=== PATIENT | male | born 1950 | race Two or more races ===

== ENCOUNTER 2020-01-22 16:12 | Inpatient (IN) | payer OTHER ==
[~2020-01-22] VITALS: Ht 165.1 cm; Wt 76.6 kg
--- NOTE | 2020-01-22 16:58 | NUR ---
PT REPORTS LEFT ELBOW/ARM SWELLING WITH SOME BRUSING NOTED. VS STABLE. FAMILY AT BEDSIDE. PT SEEN BY DR GREENFIELD WILL CONTINUE TO MONITOR.
[2020-01-22 17:00] LABS: BASOPHILS # (AUTO) 0.03 x10^3/uL (0-0.1); BASOPHILS % (AUTO) 0 % (0-1); EOSINOPHILS # (AUTO) 0.21 x10^3/uL (0-0.4); EOSINOPHILS % (AUTO) 3 % (1-7); LYMPHOCYTES # (AUTO) 1.19 x10^3/uL (1-3.4); LYMPHOCYTES % (AUTO) 17 % (22-44); MD NO; MEAN CORPUSCULAR HEMOGLOBIN 27.5 pg (27.5-34.5); MEAN CORPUSCULAR HGB CONC 32.6 g/dL (33.2-36.2); MEAN CORPUSCULAR VOLUME 84.3 fL (81-97); MEAN PLATELET VOLUME 7.4 fL (7.4-10.4); MONOCYTES % (AUTO) 11 % (2-9); NEUTROPHILS # (AUTO) 4.91 x10^3/uL (1.8-6.8); NEUTROPHILS % (AUTO) 69 % (42-75); PLATELET COUNT 297 x10^3/uL (130-400); RED BLOOD COUNT 5.18 x10^6/uL (4.38-5.82); RED CELL DISTRIBUTION WIDTH 14.7 % (9.4-14.8)
[2020-01-22] MEDS ORDERED: CEFTRIAXONE PMX 1GM/50ML 50 ML IVPB ONE (17:00)
[2020-01-22] MEDS ORDERED: SODIUM CHLORIDE FLUSH 10ML SYR IVF ONE (17:00)
[2020-01-22] MEDS ORDERED: CEFTRIAXONE PMX 1GM/50ML 50 ML ONE (17:03)
[2020-01-22 17:10] LABS: ALBUMIN 3.4 g/dL (3.4-5.0); ANION GAP 4 mmol/L (5-15); CHLORIDE 111 mmol/L (98-107); CREATININE 0.83 mg/dL (0.7-1.3)
--- NOTE | 2020-01-22 17:11 | NUR ---
both blood cultures drawn before abx given
[2020-01-22] MEDS ORDERED: METOPROLOL PO (17:19)
[2020-01-22] MEDS ORDERED: WARF-36 PO (17:19)
[2020-01-22 17:32] LABS: INTERNATIONAL NORMALIZED RATIO 2.38 (0.93-1.1); PROTHROMBIN TIME 25.5 Seconds (9.6-11.5)
[2020-01-22] MEDS ORDERED: MORPHINE SULFATE 4 MG/ML, 1ML ONE (18:18)
[2020-01-22] MEDS ORDERED: ONDANSETRON 2MG/ML, 2ML ONE (18:18)
[2020-01-22] MEDS: MORPHINE SULFATE 4 MG/ML, 1ML IVPush PRN ×2 (18:24→21:03)
--- NOTE | 2020-01-22 18:29 | NUR ---
DR GREENFIELD HAS UPDATED PATIENT. PATIENT TO BE AN ADMIT
[2020-01-22] MEDS ORDERED: ONDANSETRON 2MG/ML, 2ML IVPush ONE (18:30)
--- NOTE | 2020-01-22 19:00 | NUR ---
PT HAS BEEN SEEN BY HOSPITALIST.
--- NOTE | 2020-01-22 19:23 | NUR ---
PT REFUSED ELBOW TO BE NIKHIL WRAPPED. PROVIDER AWARE.
[2020-01-22] MEDS ORDERED: ACETAMINOPHEN 325 MG TABLET PO PRN (19:30)
[2020-01-22] MEDS ORDERED: LIDODERM 5% PATCH TD PRN (19:30)
[2020-01-22] MEDS ORDERED: TEMAZEPAM 15 MG CAPSULE PO PRN (19:30)
[2020-01-22] MEDS ORDERED: DOCUSATE 100 MG CAPSULE PO PRN (19:30)
--- NOTE | 2020-01-22 20:00 | NUR ---
PT RESTING IN ROOM. REGULAR RESP. NO ACUTE DISTRESS NOTED. CALL LIGHT IN PLACE. WILL CONTINUE TO MONITOR.
[2020-01-22] MEDS ORDERED: WARFARIN 3 MG TABLET PO-COUM ONE (21:30)
[2020-01-22] MEDS: METOPROLOL TARTRATE 25 MG TAB PO SCH (21:59)
[2020-01-22 22:07] VITALS: BP 157/96
[2020-01-23 00:36] VITALS: BP 126/78
[2020-01-23 05:10] LABS: BASOPHILS # (AUTO) 0.03 x10^3/uL (0-0.1); BASOPHILS % (AUTO) 1 % (0-1); EOSINOPHILS # (AUTO) 0.29 x10^3/uL (0-0.4); EOSINOPHILS % (AUTO) 4 % (1-7); LYMPHOCYTES % (AUTO) 12 % (22-44); MD NO; MEAN CORPUSCULAR HEMOGLOBIN 27.8 pg (27.5-34.5); MEAN CORPUSCULAR HGB CONC 33.1 g/dL (33.2-36.2); MEAN CORPUSCULAR VOLUME 83.8 fL (81-97); MEAN PLATELET VOLUME 7.5 fL (7.4-10.4); MONOCYTES # (AUTO) 0.76 x10^3/uL (0.2-0.8); MONOCYTES % (AUTO) 11 % (2-9); NEUTROPHILS # (AUTO) 4.78 x10^3/uL (1.8-6.8); NEUTROPHILS % (AUTO) 72 % (42-75); PLATELET COUNT 258 x10^3/uL (130-400); RED BLOOD COUNT 4.69 x10^6/uL (4.38-5.82); RED CELL DISTRIBUTION WIDTH 14.8 % (9.4-14.8)
[2020-01-23 05:25] LABS: ANION GAP 4 mmol/L (5-15); CALCIUM 8.5 mg/dL (8.5-10.1); CHLORIDE 109 mmol/L (98-107); CREATININE 0.74 mg/dL (0.7-1.3)
[2020-01-23 05:32] LABS: INTERNATIONAL NORMALIZED RATIO 2.44 (0.93-1.1); PROTHROMBIN TIME 26.1 Seconds (9.6-11.5)
[2020-01-23 07:25] VITALS: BP 138/86
[2020-01-23] MEDS: METOPROLOL TARTRATE 25 MG TAB PO SCH ×2 (08:55→22:43)
[2020-01-23] MEDS: WARFARIN MECH. VALVE PROTOCOL 2.5 to 3.5 XX SCH (09:00)
[2020-01-23] MEDS: CEFAZOLIN PMX 2GM/50ML 50 ML IVPB SCH ×2 (11:01→17:52)
[2020-01-23 13:56] VITALS: BP 149/80
[2020-01-23] MEDS ORDERED: CEFTRIAXONE PMX 1GM/50ML 50 ML IV SCH ×2 (17:00)
[2020-01-23] MEDS ORDERED: WARFARIN 5 MG TABLET PO-COUM ONE (18:00)
[2020-01-23 20:04] VITALS: BP 161/80
[2020-01-24] VITALS (12 sets, daily range): BP systolic 114–165; BP diastolic 74–99
[2020-01-24] MEDS: CEFAZOLIN PMX 2GM/50ML 50 ML IVPB SCH ×3 (02:43→17:46)
[2020-01-24 05:37] LABS: INTERNATIONAL NORMALIZED RATIO 3.43 (0.93-1.1); PROTHROMBIN TIME 36.8 Seconds (9.6-11.5)
[2020-01-24] MEDS: WARFARIN MECH. VALVE PROTOCOL 2.5 to 3.5 XX SCH (08:30)
[2020-01-24] MEDS: METOPROLOL TARTRATE 25 MG TAB PO SCH ×2 (08:35→22:05)
[2020-01-24] MEDS ORDERED: FUROSEMIDE 20 MG/2 ML IV ONE (09:30)
[2020-01-24 11:44] LABS: BASOPHILS # (AUTO) 0.02 x10^3/uL (0-0.1); BASOPHILS % (AUTO) 0 % (0-1); EOSINOPHILS # (AUTO) 0.16 x10^3/uL (0-0.4); EOSINOPHILS % (AUTO) 2 % (1-7); HCT (SEDRATE) 44.2 % (39.2-51.8); LYMPHOCYTES # (AUTO) 0.82 x10^3/uL (1-3.4); LYMPHOCYTES % (AUTO) 13 % (22-44); MD NO; MEAN CORPUSCULAR HEMOGLOBIN 27.9 pg (27.5-34.5); MEAN CORPUSCULAR HGB CONC 33.4 g/dL (33.2-36.2); MEAN CORPUSCULAR VOLUME 83.7 fL (81-97); MEAN PLATELET VOLUME 7.4 fL (7.4-10.4); MONOCYTES # (AUTO) 0.75 x10^3/uL (0.2-0.8); MONOCYTES % (AUTO) 12 % (2-9); NEUTROPHILS # (AUTO) 4.77 x10^3/uL (1.8-6.8); NEUTROPHILS % (AUTO) 73 % (42-75); PLATELET COUNT 289 x10^3/uL (130-400); RED BLOOD COUNT 5.26 x10^6/uL (4.38-5.82); RED CELL DISTRIBUTION WIDTH 14.6 % (9.4-14.8)
[2020-01-24 11:52] LABS: ALANINE AMINOTRANSFERASE 28 U/L (12-78); ALBUMIN 3.1 g/dL (3.4-5.0); ANION GAP 7 mmol/L (5-15); CALCIUM 8.3 mg/dL (8.5-10.1); CHLORIDE 103 mmol/L (98-107); CREATININE 0.91 mg/dL (0.7-1.3)
[2020-01-24 11:59] LABS: ALKALINE PHOSPHATASE 71 U/L (45-117); BILIRUBIN,TOTAL 0.7 mg/dL (0.2-1.0); TOTAL PROTEIN 7.1 g/dL (6.4-8.2)
[2020-01-24] MEDS ORDERED: OMNIPAQUE 350 MG/ML, 100ML BOTTLE ONE (14:06)
[2020-01-24] MEDS ORDERED: VANCOMYCIN PER PHARMACY MC PRN (14:30)
[2020-01-24] MEDS ORDERED: PHARMACOKINETIC MONITORING MC PRN (15:00)
[2020-01-24] MEDS ORDERED: VANCOMYCIN 1,800 MG in SODIUM CHLORIDE 0.9% 250 ML IV ONE (15:00)
[2020-01-25 00:51] VITALS: BP 131/71
[2020-01-25 00:59] VITALS: BP 131/71
[2020-01-25] MEDS: CEFAZOLIN PMX 2GM/50ML 50 ML IVPB SCH ×3 (02:27→20:00)
[2020-01-25] MEDS: VANCOMYCIN 1,400 MG in SODIUM CHLORIDE 0.9% 250 ML IV SCH ×2 (03:31→16:05)
[2020-01-25 06:37] LABS: INTERNATIONAL NORMALIZED RATIO 2.07 (0.93-1.1); PROTHROMBIN TIME 22.1 Seconds (9.6-11.5)
[2020-01-25 06:55] VITALS: BP 137/77
[2020-01-25] MEDS ORDERED: WARFARIN MECH. VALVE PROTOCOL 2.5 to 3.5 XX SCH (09:00)
[2020-01-25] MEDS: METOPROLOL TARTRATE 25 MG TAB PO SCH ×2 (09:25→20:00)
[2020-01-25] MEDS ORDERED: LIDOCAINE 1%, 10ML ONE ×2 (09:49→10:35)
[2020-01-25 12:11] VITALS: BP 146/90
[2020-01-25 19:45] VITALS: BP 138/87
[2020-01-26] MEDS: CEFAZOLIN PMX 2GM/50ML 50 ML IVPB SCH ×3 (03:11→19:42)
[2020-01-26 03:17] VITALS: BP 137/78
[2020-01-26] MEDS: VANCOMYCIN 1,400 MG in SODIUM CHLORIDE 0.9% 250 ML IV SCH ×2 (04:10→17:22)
[2020-01-26 06:14] LABS: INTERNATIONAL NORMALIZED RATIO 1.47 (0.93-1.1); PROTHROMBIN TIME 15.6 Seconds (9.6-11.5)
[2020-01-26 07:13] VITALS: BP 156/95
[2020-01-26] MEDS: METOPROLOL TARTRATE 25 MG TAB PO SCH ×2 (08:25→19:42)
[2020-01-26 13:25] VITALS: BP 148/96
[2020-01-26 20:04] VITALS: BP 154/95
[2020-01-27 00:27] VITALS: BP 146/92
[2020-01-27] MEDS: CEFAZOLIN PMX 2GM/50ML 50 ML IVPB SCH ×2 (03:35→11:17)
[2020-01-27 05:23] LABS: INTERNATIONAL NORMALIZED RATIO 1.13 (0.93-1.1)
[2020-01-27] MEDS: VANCOMYCIN 1,400 MG in SODIUM CHLORIDE 0.9% 250 ML IV SCH ×2 (05:27→17:00)
[2020-01-27 07:33] VITALS: BP 154/89
[2020-01-27] MEDS ORDERED: HEPARIN 5,000 UNITS/ML, 1ML IV ONE (08:30)
[2020-01-27] MEDS ORDERED: HEPARIN 25,000 UNITS/250ML PMX 250 ML IV PRN (08:30)
[2020-01-27] MEDS: HEPARIN 5,000 UNITS/ML, 1ML IV PRN ×2 (09:26→09:27)
[2020-01-27] MEDS: METOPROLOL TARTRATE 25 MG TAB PO SCH (10:05)
[2020-01-27] MEDS ORDERED: CEPH750C9 PO (12:17)
[2020-01-27 14:31] VITALS: BP 158/100
[2020-01-27] MEDS ORDERED: FLU VACC QS2019-20 36MOS UP/PF 0.5 ML IM-VACC ONE (17:00)
== END 2020-01-27 18:09 | disposition home or self-care (01) | DRG 603 ==
LOC: ED 18:48 → EDIP 19:28 → 3N 20:49
PROVIDERS: ADMIT Family Medicine; ATTEND Internal Medicine Infectious Disease
PROC: 30233M1 Transfusion of Nonautologous Plasma Cryoprecipitate into Peripheral Vein, Percutaneous Approach (ICD-10-PCS; 2020-01-24)
PROC: 0R9M3ZX Drainage of Left Elbow Joint, Percutaneous Approach, Diagnostic (ICD-10-PCS; principal; 2020-01-25)
DX: L03.114 Cellulitis of left upper limb (principal); D68.59 Other primary thrombophilia; M25.00 Hemarthrosis, unspecified joint; Q23.1 Congenital insufficiency of aortic valve; S50.02XA Contusion of left elbow, initial encounter; M25.422 Effusion, left elbow; I10 Essential (primary) hypertension; M19.90 Unspecified osteoarthritis, unspecified site; T45.515A Adverse effect of anticoagulants, initial encounter; M79.89 Other specified soft tissue disorders; Z79.01 Long term (current) use of anticoagulants; Z80.3 Family history of malignant neoplasm of breast; Z82.49 Family history of ischemic heart disease and other diseases of the circulatory system; Z95.3 Presence of xenogenic heart valve; Z23 Encounter for immunization
CPT/HCPCS: 36415; 73080; 84145; 89050; 89060; J3490; 20605; 20606; 80048; 80053; 80202; 82040; 83605; 85025; 85520; 85610; 85651; 85730; 85810; 86140; 86850; 86900; 87040; 87070; 87081; 87205; 90686; 96365; 96375; 99285; G0378; J0690; J0696; J2405; J3370; Q9967; J1940; J2270; J7050; P9017